=== PATIENT | male | born 1960 | race Caucasian/White ===

== ENCOUNTER 2019-09-26 00:56 | Outpatient (CLI) | payer BC, SELFPAY ==
[2019-09-26 19:19] LABS: SARS-CoV-2 RNA PCR Negative
== END 2019-09-26 00:57 | disposition home or self-care (01) ==
LOC: ANHCOVIDDT 00:57
PROVIDERS: PCP Family Medicine; Visit Provider Internal Medicine Gastroenterology
DX: Z01.812 Encounter for preprocedural laboratory examination (principal); Z11.59 Encounter for screening for other viral diseases
CPT/HCPCS: 87635; C9803; U0003

== ENCOUNTER 2019-09-28 02:17 | Day surgery (SDC) | payer BC, SELFPAY ==
[2019-09-18 12:43] VITALS: BMI 28.5
[2019-09-28 06:19] VITALS: BP 121/74; PULSE 71; RESP 18; TEMP 36.4; O2SAT 98; BMI 26.9
[2019-09-28] MEDS: LACTATED RINGERS 1,000 ML 150 ML IV CONT ×2 (06:27→07:23)
--- NOTE | 2019-09-28 06:50 | WPDANESEPPF ---
Anes - Initial Pre Proc Eval Procedure: Operation Date: 09/28/19 07:30 Proposed Procedures p Colonoscopy - Home Childress MD Date/Time: 09/28/19 06:50 Surgeon: Home Childress MD Pre Op Diagnosis: ulcerative colitis Patient Data Age: 59 Gender: M Height: 1.73 m Weight: 80.3 kg Last Vital Signs Temp 36.4 C 09/28/19 06:19 Pulse 71 09/28/19 06:19 Resp 18 09/28/19 06:19 BP 121/74 09/28/19 06:19 Pulse Ox 98 09/28/19 06:19 Allergies Allergy/AdvReac Type Severity Reaction Status Date / Time lisinopril Allergy Unknown cough Verified 09/28/19 06:15 midazolam Allergy Unknown Other Verified 09/28/19 06:15 Sulfa (Sulfonamide Allergy Unknown Skin Verified 09/28/19 06:15 Antibiotics) Reaction Home Medications Medication Instructions Recorded Confirmed Type emollient combination no.43 See Rx Instructions .ROUTE .COMPLEX 09/18/19 09/18/19 History [Promiseb] folic acid 1 mg PO DAILY 09/18/19 09/18/19 History hydrochlorothiazide 25 mg PO DAILY 09/18/19 09/18/19 History irbesartan 300 mg PO DAILY 09/18/19 09/18/19 History mesalamine 0.375 g PO DAILY 09/18/19 09/18/19 History methotrexate sodium 2.5 mg PO WEEKLY 09/18/19 09/18/19 History metoprolol succinate 50 mg PO DAILY 09/18/19 09/18/19 History Patient hx anesthesia problems: none Family hx anesthesia problems: none PMFSH Past Medical History Medical History (Updated 09/28/19 @ 06:51 by Raul Almaraz MD) Back pain HTN (hypertension) Hypercholesterolemia Irregular heartbeat HX SVT Overweight (BMI 25.0-29.9) Family History Family History (Updated 06/03/17 @ 11:09 by DOCTOR UNKNOWN) Mother Hypertension Family history of cardiovascular disease, Onset Age: 73 Family history of rheumatic fever, Onset Age: 73 Father Patient's father is Grandparent Family history of cardiovascular disease Acute myocardial infarction Sibling Family history of cardiovascular disease Social History Social History Smoking status: Never smoker Alcohol intake: current Anes - Eval Final PreProcedure Day of Procedure 07/31/20 06:50 Patient weight: overweight Heart: regular rate and rhythm Lungs: clear to auscultation and normal air movement Airway: Mallampati scale class II Neurological: alert and oriented Last oral intake: >/= 8 hours ASA classification: II Emergent: no Anesthetic plan: proceed Anesthesia type and monitoring: general GIVS Informed Consent: The patient's anesthetic plan and its attendant risks and benefits were discussed with the patient/family/POA. Questions were solicited and answers provided to the satisfaction of the patient/family/POA.
--- NOTE | 2019-09-28 07:33 | WPDGICN ---
Assessment and Plan Assessment and plan (1) Ulcerative colitis: Code(s): K51.90 - Ulcerative colitis, unspecified, without complications Status: Acute Assessment and Plan: Patient with a known history of ulcerative colitis patient is in clinical remission. Plan is to continue Apriso and methotrexate. Surveillance colonoscopy is recommended now on a perhaps 3 year intervals in the future. GI Consult Note Consult date/time: 09/28/19 07:33 HPI: Timothy Hays is a 59 year old male seen in evaluation at the request of Dr Gregoria Mims. patient with a known history of ulcerative colitis presents for screening exam. He has a long history of ulcerative colitis. Currently doing well states his bowel habits are normal. He denies abdominal pain. He denies any bleeding. His weight has remained stable. Current medications include a prior eyes 00.375 mg 6 tablets p.o. daily. Methotrexate 2.5 mg a week. Family history is noncontributory. Patient has a past medical history of a Schatzki's ring dilated currently swallowing without difficulties. Review of Systems Review of Systems: All systems reviewed & are unremarkable except as noted in HPI and below PMFSH Past Medical History Medical History (Updated 09/28/19 @ 07:49 by Home Childress MD) Back pain HTN (hypertension) Hypercholesterolemia Irregular heartbeat HX SVT Overweight (BMI 25.0-29.9) Family History Family History (Updated 06/03/17 @ 11:09 by DOCTOR UNKNOWN) Mother Hypertension Family history of cardiovascular disease, Onset Age: 73 Family history of rheumatic fever, Onset Age: 73 Father Patient's father is Grandparent Family history of cardiovascular disease Acute myocardial infarction Sibling Family history of cardiovascular disease Social History Social History Smoking status: Never smoker Alcohol intake: current Meds Home Medications and Allergies Home Medications Medication Instructions Recorded Confirmed Type emollient combination no.43 See Rx Instructions .ROUTE .COMPLEX 09/18/19 09/18/19 History [Promiseb] folic acid 1 mg PO DAILY 09/18/19 09/18/19 History hydrochlorothiazide 25 mg PO DAILY 09/18/19 09/18/19 History irbesartan 300 mg PO DAILY 09/18/19 09/18/19 History mesalamine 0.375 g PO DAILY 09/18/19 09/18/19 History methotrexate sodium 2.5 mg PO WEEKLY 09/18/19 09/18/19 History metoprolol succinate 50 mg PO DAILY 09/18/19 09/18/19 History Allergies Allergy/AdvReac Type Severity Reaction Status Date / Time lisinopril Allergy Unknown cough Verified 09/28/19 06:15 midazolam Allergy Unknown Other Verified 09/28/19 06:15 Sulfa (Sulfonamide Allergy Unknown Skin Verified 09/28/19 06:15 Antibiotics) Reaction Vital Signs Vital Signs - 24 hr 09/28/19 06:19 Temperature 97.6 F Pulse Rate 71 Respiratory Rate 18 Blood Pressure 121/74 Pulse Oximetry 98 Exam Narrative: Exam Narrative: Physical exam reveals patient to be alert. Vital signs stable. HEENT exam unremarkable. Lungs are clear to auscultation and percussion. Heart is without murmur or extra sounds. Abdominal exam bowel sounds are present soft nontender with no organomegaly. Digital external rectal exam is normal.
[2019-09-28 07:49] VITALS: BP 105/65; PULSE 70; RESP 19; O2SAT 97
[2019-09-28 07:59] VITALS: BP 117/79; PULSE 66; RESP 23; O2SAT 97
[2019-09-28 08:09] VITALS: BP 122/84; PULSE 70; RESP 14; O2SAT 98
== END 2019-09-28 08:18 | disposition home or self-care (01) ==
PROVIDERS: PCP Family Medicine; Visit Provider Internal Medicine Gastroenterology
PROC: 0DJD8ZZ Inspection of Lower Intestinal Tract, Via Natural or Artificial Opening Endoscopic (ICD-10-PCS; CPT 45378; principal; 2019-09-28 07:30)
DX: K51.50 Left sided colitis without complications (principal); I10 Essential (primary) hypertension; E78.00 Pure hypercholesterolemia, unspecified
CPT/HCPCS: 45380; 88305; J2704; J7120

== ENCOUNTER → 2020-10-29 12:19 | Outpatient (CLI) | payer BC, SELFPAY ==
--- NOTE | ~2020-10-29 | XR_ITS ---
EXAMINATION: XR thoracic spine 3V EXAM DATE: 10/29/2020 13:13 INDICATION: M54.9 - Dorsalgia, unspecified . TECHNIQUE: Frontal and lateral projections of the thoracic spine as well as lateral swimmers projecti on of the upper thoracic spine for interpretation. There is no prior study for comparison. FINDINGS: Mild mid and lower thoracic disc disease. There are no bony erosions identified. The verte bral bodies are aligned in the AP dimension. There are no acute fractures identified. behavioral geneticist ing device. Paraspinal soft tissue is unremarkable. IMPRESSION: Mild mid and lower thoracic disc disease. Reviewed, dictated and finalized at location [facility].
--- NOTE | ~2020-10-29 | XR_ITS ---
EXAMINATION: XR_CERV2-3V_CR EXAM DATE: 10/29/2020 13:13 INDICATION: Neck pain. TECHNIQUE: Cervical spine frontal and lateral projections. Open-mouth odontoid projection. There is no prior study for comparison. FINDINGS: There is no evidence of acute cervical fracture. The odontoid process is intact. Pre-dens space is normal. Prevertebral soft tissue is normal. There are no soft tissue abnormalities identi fied. There is moderate disc disease at C3-4, 5-6 and 6-7. The vertebral bodies are aligned in the A P dimension. Overall moderate cervical facet and uncovertebral joint arthropathy. Mild cervical levos coliosis. IMPRESSION: 1. Moderate cervical spondylosis. Reviewed, dictated and finalized at location [facility].
== END ==
PROVIDERS: PCP Family Medicine; Visit Provider Family Medicine
DX: M47.813 Spondylosis without myelopathy or radiculopathy, cervicothoracic region (principal)
CPT/HCPCS: 72040; 72072

== ENCOUNTER 2021-03-03 01:22 | Day surgery (SDC) | payer BC, SELFPAY ==
[2021-02-11 15:42] VITALS: BMI 26.6
[2021-03-03 06:18] VITALS: BP 109/67; PULSE 91; RESP 18; TEMP 36.1; O2SAT 98; BMI 25.0
[2021-03-03] MEDS: LACTATED RINGERS 1,000 ML 150 ML IV CONT (06:28)
--- NOTE | 2021-03-03 07:28 | WPDGICN ---
Assessment and Plan Assessment and plan (1) Ulcerative colitis: Qualifiers: Ulcerative colitis location: unspecified ulcerative colitis location Digestive disease complication type: without complication Qualified Code(s): K51.90 - Ulcerative colitis, unspecified, without complications Code(s): K51.90 - Ulcerative colitis, unspecified, without complications Status: Acute Assessment and Plan: Patient with longstanding diagnosis of ulcerative colitis. Now appears to have some activity with this as he has occasional blood in his stools in persistently loose stools. Currently maintained on Lialda. Plan is for colonoscopy both for surveillance and to assess status of his ulcerative colitis. Further recommendations will be given after endoscopy. GI Consult Note Consult date/time: 03/03/21 07:28 HPI: Timothy Hays is a 60 year old male Presents for screening colonoscopy. Patient has a longstanding history of ulcerative colitis. Since middle of summary is had persistently loose stools. He has had since 3 or 4 episodes with blood identified in his stools. He does maintain good control of bowel movements. He denies abdominal pain although with bowel movements will get cramping. He denies any fever. Medications currently include Lialda 4.8g p.o. daily. He was on a brief prednisone trial that is now tapered off. He was empirically given a trial of Flagyl with no change in bowel habits. Stool cultures have consistent Soco been negative. He presents today for screening colonoscopy. Last colonoscopy was 2-3 years ago. Review of Systems Review of Systems: All systems reviewed & are unremarkable except as noted in HPI and below PMFSH Past Medical History Medical History Back pain Esophageal dysphagia HTN (hypertension) Hypercholesterolemia Induration penis plastica Irregular heartbeat HX SVT Male erectile disorder Migraine 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 equivalents) Overweight (BMI 25.0-29.9) Peyronie's disease Right sacral radiculopathy Seborrheic dermatitis Spinal stenosis, cervical region Supraventricular tachycardia Syncope and collapse Surgical History Surgical History Hx of prior ablation treatment 2017 svt/ atrial tach Family History Family History Mother Hypertension Family history of cardiovascular disease, Onset Age: 73 Family history of rheumatic fever, Onset Age: 73 Father Patient's father is Grandparent Family history of cardiovascular disease Acute myocardial infarction Sibling Family history of cardiovascular disease Social History Social History Smoking status: Never smoker Second hand tobacco smoke exposure: No Alcohol intake: current Drinks per week: 6 Substance use: never Substance use type: does not use Living arrangements: with family Gender identity (if verbalized by the patient): Male Spiritual care concerns: No Meds Home Medications and Allergies Home Medications Medication Instructions Recorded Confirmed Type emollient combination no.43 See Rx Instructions .ROUTE .COMPLEX 09/18/19 02/11/21 History [Promiseb] irbesartan 300 mg PO DAILY 09/18/19 02/11/21 History multivitamin,tx-minerals 1 tablet PO DAILY 03/26/20 02/11/21 History omega-3 fatty acids 1,000 mg 1,000 mg PO DAILY 03/26/20 02/11/21 History capsule cyclobenzaprine 10 mg tablet 10 mg PO TID PRN #30 tablet 06/19/20 02/11/21 Rx mesalamine rectal susp enema with 4 g RECTAL QHS #45 ea 08/28/20 02/11/21 Rx cleansing wipes 4 gram/60 mL kit metoprolol succinate 50 mg 100 mg PO DAILY tablet 10/29/20 02/11/21 History tablet,extended release 24 hr metronidazole 375 mg capsule 375 mg PO Q
--- NOTE | 2021-03-03 07:30 | WPDANESEPPF ---
Anes - Initial Pre Proc Eval Procedure: Operation Date: 03/03/21 07:30 Proposed Procedures p Colonoscopy - Home Childress MD Date/Time: 03/03/21 07:30 Surgeon: Home Childress MD Pre Op Diagnosis: ulcerative colitis Patient Data Age: 60 Gender: M Height: 1.73 m Weight: 74.8 kg Last Vital Signs Temp 97 F L 03/03/21 06:18 Pulse 91 03/03/21 06:18 Resp 18 03/03/21 06:18 BP 109/67 03/03/21 06:18 Pulse Ox 98 03/03/21 06:18 Allergies Allergy/AdvReac Type Severity Reaction Status Date / Time Sulfa (Sulfonamide Allergy Unknown Skin Verified 02/11/21 15:39 Antibiotics) Reaction lisinopril AdvReac Unknown cough Verified 02/11/21 15:39 midazolam AdvReac Unknown Agitated Verified 02/11/21 15:39 Home Medications Medication Instructions Recorded Confirmed Type emollient combination no.43 See Rx Instructions .ROUTE .COMPLEX 09/18/19 02/11/21 History [Promiseb] irbesartan 300 mg PO DAILY 09/18/19 02/11/21 History multivitamin,tx-minerals 1 tablet PO DAILY 03/26/20 02/11/21 History omega-3 fatty acids 1,000 mg 1,000 mg PO DAILY 03/26/20 02/11/21 History capsule cyclobenzaprine 10 mg tablet 10 mg PO TID PRN #30 tablet 06/19/20 02/11/21 Rx mesalamine rectal susp enema with 4 g RECTAL QHS #45 ea 08/28/20 02/11/21 Rx cleansing wipes 4 gram/60 mL kit metoprolol succinate 50 mg 100 mg PO DAILY tablet 10/29/20 02/11/21 History tablet,extended release 24 hr metronidazole 375 mg capsule 375 mg PO Q12H #14 cap 12/03/20 02/11/21 Rx hydrochlorothiazide 25 mg tablet See Rx Instructions .ROUTE 01/20/21 02/11/21 Rx .COMPLEX #90 tablet mesalamine 1.2 gram tablet,delayed See Rx Instructions .ROUTE 01/20/21 02/11/21 Rx release .COMPLEX #360 tablet folic acid 1 mg PO DAILY 02/11/21 02/11/21 History prednisone 20 mg PO PRN PRN 02/11/21 02/11/21 History Patient hx anesthesia problems: none Family hx anesthesia problems: none Results Review: All pre-operative results and documents have been reviewed as part of the pre-operative evaluation. [facility] Past Medical History Medical History Back pain Esophageal dysphagia HTN (hypertension) Hypercholesterolemia Induration penis plastica Irregular heartbeat HX SVT Male erectile disorder Migraine 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 equivalents) Overweight (BMI 25.0-29.9) Peyronie's disease Right sacral radiculopathy Seborrheic dermatitis Spinal stenosis, cervical region Supraventricular tachycardia Syncope and collapse Surgical History Surgical History Hx of prior ablation treatment 2017 svt/ atrial tach Family History Family History Mother Hypertension Family history of cardiovascular disease, Onset Age: 73 Family history of rheumatic fever, Onset Age: 73 Father Patient's father is Grandparent Family history of cardiovascular disease Acute myocardial infarction Sibling Family history of cardiovascular disease Social History Social History Smoking status: Never smoker Second hand tobacco smoke exposure: No Alcohol intake: current Drinks per week: 6 Substance use: never Substance use type: does not use Living arrangements: with family Gender identity (if verbalized by the patient): Male Spiritual care concerns: No Anes - Eval Final PreProcedure Day of Procedure 03/03/21 07:30 Patient weight: overweight Heart: regular rate and rhythm Lungs: clear to auscultation Airway: Mallampati scale class II Neurological: alert and oriented Last oral intake: >/= 8 hours ASA classification: III Emergent: no Anesthetic plan: proceed Anesthesia type and monitoring: general GIVS and standard monitoring Results Review: All pre-operative results and docume
[2021-03-03 07:46] VITALS: BP 89/63; PULSE 80; RESP 22; O2SAT 94
[2021-03-03 07:56] VITALS: BP 111/77; PULSE 78; RESP 17; O2SAT 97
[2021-03-03 08:06] VITALS: BP 117/86; PULSE 72; RESP 20; O2SAT 98
== END 2021-03-03 08:12 | disposition home or self-care (01) ==
PROVIDERS: PCP Family Medicine; Visit Provider Internal Medicine Gastroenterology
PROC: 0DJD8ZZ Inspection of Lower Intestinal Tract, Via Natural or Artificial Opening Endoscopic (ICD-10-PCS; CPT 45378; principal; 2021-03-03 07:30)
DX: K51.00 Ulcerative (chronic) pancolitis without complications (principal); K63.5 Polyp of colon; K52.89 Other specified noninfective gastroenteritis and colitis; R13.10 Dysphagia, unspecified; I10 Essential (primary) hypertension; E78.00 Pure hypercholesterolemia, unspecified; I47.1 Supraventricular tachycardia; M54.18 Radiculopathy, sacral and sacrococcygeal region; N48.6 Induration penis plastica; M48.00 Spinal stenosis, site unspecified
CPT/HCPCS: 45380; 88305; J2704; J7120

== ENCOUNTER 2021-06-02 05:13 | Emergency (ER) | payer BC, SELFPAY ==
[2021-06-02 05:14] VITALS: BP 117/67; PULSE 80; RESP 16; TEMP 36.3; O2SAT 97
--- NOTE | 2021-06-02 05:43 | ED.LOWEXIN ---
HPI - Extremity Injury (Lower) General Chief Complaint: Extremity Injury, Lower Stated Complaint: left knee pain Time Seen by Provider: 06/02/21 05:28 Source: patient History of Present Illness HPI Narrative: Patient presents with left knee irritation. Patient's gets Humira injections for his ulcerative colitis usually gets them in his abdomen and may cause local irritation and edema. Couple days ago he got another injection in his thigh he had local erythema and edema and now developed some right knee pain primarily on the medial aspect. Reports is achy constant, worse with bending the knee, radiates up proximally on the medial aspect of the thigh. Patient is unsure if this is a normal reaction versus something more seriously going to come ER for evaluation. Denies prior injury to the area. Patient denies prior history of blood clots or recent hospitalizations, recent surgeries Related Data Home Medications Medication Instructions Recorded Confirmed emollient combination no.43 See Rx Instructions .ROUTE .COMPLEX 09/18/19 02/11/21 [Promiseb] irbesartan 300 mg PO DAILY 09/18/19 02/11/21 multivitamin,tx-minerals 1 tablet PO DAILY 03/26/20 02/11/21 omega-3 fatty acids 1,000 mg 1,000 mg PO DAILY 03/26/20 02/11/21 capsule metoprolol succinate 50 mg 100 mg PO DAILY tablet 10/29/20 02/11/21 tablet,extended release 24 hr prednisone 20 mg PO PRN PRN 02/11/21 02/11/21 Allergies Allergy/AdvReac Type Severity Reaction Status Date / Time Sulfa (Sulfonamide Allergy Unknown Skin Verified 06/02/21 05:17 Antibiotics) Reaction lisinopril AdvReac Unknown cough Verified 06/02/21 05:17 midazolam AdvReac Unknown Agitated Verified 06/02/21 05:17 Review of Systems Review of Systems: CONSTITUTIONAL: Denies fever, chills, or sweats. EYES: Denies visual changes, redness, or discharge. ENT: Denies rhinorrhea, congestion, sore throat, or otalgia. CARDIOVASCULAR: Denies chest pain, palpitations, or edema. RESPIRATORY: Denies cough or dyspnea. GASTROINTESTINAL: Denies abdominal pain, nausea, vomiting, or diarrhea. GENITOURINARY: Denies dysuria or hematuria. SKIN: Denies rash or itching. MUSCULOSKELETAL: Denies back pain, joint pain, or myalgia. NEUROLOGIC: Denies headache, numbness, dizziness, or weakness. PSYCHIATRIC: Denies anxiety or depression. All systems reviewed & are unremarkable except as noted in HPI and below PMFSH Past Medical History Medical History Back pain Esophageal dysphagia HTN (hypertension) Hypercholesterolemia Induration penis plastica Irregular heartbeat HX SVT Male erectile disorder Migraine 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 equivalents) Overweight (BMI 25.0-29.9) Peyronie's disease Right sacral radiculopathy Seborrheic dermatitis Spinal stenosis, cervical region Supraventricular tachycardia Syncope and collapse Surgical History Surgical History Hx of prior ablation treatment 2017 svt/ atrial tach Family History Family History Mother Hypertension Family history of cardiovascular disease, Onset Age: 73 Family history of rheumatic fever, Onset Age: 73 Father Patient's father is Grandparent Family history of cardiovascular disease Acute myocardial infarction Sibling Family history of cardiovascular disease Social History Social History Smoking status: Never smoker Second hand tobacco smoke exposure: No Alcohol intake: current Drinks per week: 6 Substance use: never Substance use type: does not use Gender identity (if verbalized by the patient): Male Spiritual care concerns: No Exam Narrative: GENERAL: Well-appearing, well-nourished, and in no acute distress. HEAD: Normocephalic, atraumatic. EYES: PERRLA and EOMI. ENT:
== END 2021-06-02 06:03 | disposition home or self-care (01) ==
LOC: ANHED 05:56
PROVIDERS: Emergency Provider Emergency Medicine; PCP Family Medicine
DX: M25.562 Pain in left knee (principal); I10 Essential (primary) hypertension; E78.00 Pure hypercholesterolemia, unspecified; Z79.899 Other long term (current) drug therapy; Z86.69 Personal history of other diseases of the nervous system and sense organs; Z98.890 Other specified postprocedural states; Z88.2 Allergy status to sulfonamides; Z88.8 Allergy status to other drugs, medicaments and biological substances
CPT/HCPCS: 99281

== ENCOUNTER 2021-06-27 23:36 | Emergency (ER) | payer BC, SELFPAY ==
--- NOTE | ~2021-06-27 | CT_ITS ---
EXAMINATION: CT brain wo con DATE: 06/28/2021 01:23 INDICATION: Left forehead hematoma. Dizziness, syncope. TECHNIQUE: Computed tomographic angiography (CTA) of the head was performed without and with 100 mL O mnipaque-350 intravenous contrast. Exam dose: 605.33 mGy-cm total exam DLP. Volume-rendered and ma ximum intensity projection 3D reconstructions of the intracranial arteries were created by the techno logist on a separate workstation. COMPARISON: None. FINDINGS: Bilateral carotid siphon internal carotid artery calcifications. Nonspecific mild diminishe d attenuation cerebral white matter, likely due to chronic small vessel ischemic changes. No intracranial mass lesion or hemorrhage or cerebrovascular accident. No midline shift or mass effec t. No subdural or epidural hematoma. No fracture or bone destruction of the cranial vault. Mastoid air cells and included paranasal sinuses are normally developed and aerated. IMPRESSION: Cerebral atherosclerosis and chronic small vessel ischemic changes of cerebral white mat ter No acute intracranial abnormality Reviewed, dictated and finalized at [facility]. Reviewed, dictated and finalized at location [facility]. IMPRESSION: Cerebral atherosclerosis and chronic small vessel ischemic changes of cerebral white matter No acute intracranial abnormality
--- NOTE | ~2021-06-27 | CT_ITS ---
EXAMINATION: CT abdomen pelvis w con DATE: 06/28/2021 03:46 INDICATION: Elevated white blood cell count TECHNIQUE: Computed tomography (CT) of the abdomen and pelvis was performed with 100 CC Omnipaque 350 intravenous contrast. Automated exposure control and iterative reconstruction technique were employe d. Exam dose: 511.97 mGy-cm total exam DLP. COMPARISON: None. FINDINGS: There is posterior basilar right lower lobe atelectasis at left lower lobe atelectasis. Min imal discoid atelectasis or scarring at the base of the lingula. Normal heart size. No pericardial or pleural effusion. The liver, gallbladder, bile ducts, pancreas, pancreatic duct and spleen are unremarkable. Normal morphology of the adrenal glands. Normal caliber of the abdominal aorta. No intraperitoneal or retroperitoneal or pelvic mass lesion or adenopathy or ascites. No renal mass lesion or urinary tract calculus or hydroureteronephrosis. There is prostate enlargemen t. The urinary bladder is unremarkable. There is mild thickening of the wall of the colon with some fluid levels;. There are areas of pericol ic mild fat stranding. The findings suggest colitis. No small bowel dilatation or wall thickening. No evidence of appendicitis. Degenerative changes of the lower thoracic spine and lumbar spine including severe degenerative disc disease at L4-5 and L5-S1, mild retrolisthesis at L5-S1. IMPRESSION: Diffuse colon wall thickening, colon and air-filled levels, suggesting colitis. Consider inflammatory or infectious colitis Reviewed, dictated and finalized at [facility]. Reviewed, dictated and finalized at location [facility]. IMPRESSION: Diffuse colon wall thickening, colon and air-filled levels, sugges ting colitis. Consider inflammatory or infectious colitis
[2021-06-27 23:40] VITALS: BP 112/69; PULSE 85; RESP 16; TEMP 36.2; O2SAT 98
--- NOTE | 2021-06-28 00:07 | ECG_ITS ---
Measurements Intervals [place] Rate: 79 P: 4 DE: 149 QRS: -48 QRSD: 105 T: 49 QT: 384 QTc: 441 Interpretive Statements SINUS RHYTHM LEFT AXIS DEVIATION BORDERLINE ECG Electronically Signed On 06-28-2021 6:42:05 CDT by Guzman Sanders D.O.
[2021-06-28 00:37] LABS: Basophils Absolute Auto 0.2 K/mm3 (0.0-0.1); Basophils Percent Auto 0.6 % (0.2-1.2); Eosinophils Absolute Auto 0.2 K/mm3 (0-0.3); Eosinophils Percent Auto 0.8 % (0-4.4); Hematocrit 43.5 % (42.0-52.0); Hemoglobin 14.4 g/dL (14.0-18.0); Immature Granulocyte Absolute 0.22 K/mm3 (0.00-0.031); Immature Granulocyte Percent A 0.8 % (0-0.5); Lymphocytes Absolute Auto 4.59 K/mm3 (0.9-3.2); Lymphocytes Percent Auto 17.5 % (18.3-44.2); Mean Corpuscular HGB Conc 33.1 g/dl (32-36); Mean Corpuscular Hemoglobin 30.1 pg (26-34); Monocytes Absolute Auto 1.9 K/mm3 (0.1-0.6); Neutrophils Absolute Auto 19.2 K/mm3 (1.3-6.7); Neutrophils Percent Auto 73.3 % (45.5-73.1); Platelet Count Result 321 k/mm3 (150-375); Red Blood Count 4.78 M/mm3 (4.6-6.20); White Blood Count 26.3 K/mm3 (4.5-10.0)
[2021-06-28 00:46] LABS: Alanine Aminotransferase 18 U/L (4-50); Albumin Level 3.6 g/dL (3.5-5.1); Alkaline Phosphatase 88 U/L (38-126); Anion Gap 5 mmol/L (8-16); Aspartate Amino Transferase 28 U/L (17-59); Bilirubin,Total 0.3 mg/dL (0.2-1.3); Blood Urea Nitrogen 12 mg/dL (9-20); Calcium 8.3 mg/dL (8.4-10.2); Carbon Dioxide 30 mmol/L (22-30); Chloride 102 mmol/L (98-107); Estimated CRCL calculation 67 ml/min; Estimated Glomerular Filt Rate > 60; Glucose 138 mg/dL (65-110); Potassium 3.5 mmol/L (3.4-5.0); Sodium 137 mmol/L (137-145)
--- NOTE | 2021-06-28 01:10 | ED.DIZZY ---
HPI - Dizziness General Chief Complaint: Syncope Stated Complaint: fall Time Seen by Provider: 06/28/21 00:22 Source: patient History of Present Illness HPI Narrative: Patient presents with syncope. Patient was using the restroom and developed lightheadedness and tunnel vision and then collapsed. Loud noise was heard by his who went to evaluate. They noted a fair amount of blood in the bathroom she helped the patient to his feet a lot and continue using the restroom and then transported to the ER for evaluation. Patient denies any chest pain or shortness of breath prior to the fall. Patient reports a history of micturition syncope. Reports he still feels a little bit weak and nauseous. Reports he felt well earlier today he denies any recent fever cough, congestion. Does report he gets frequent allergic reactions due to his Humira injections and had an injection today he treated himself with Benadryl to assist with sleeping tonight and then use the restroom afterward Related Data Home Medications Medication Instructions Recorded Confirmed emollient combination no.43 See Rx Instructions .ROUTE .COMPLEX 09/18/19 02/11/21 [Promiseb] irbesartan 300 mg PO DAILY 09/18/19 02/11/21 multivitamin,tx-minerals 1 tablet PO DAILY 03/26/20 02/11/21 omega-3 fatty acids 1,000 mg 1,000 mg PO DAILY 03/26/20 02/11/21 capsule metoprolol succinate 50 mg 100 mg PO DAILY tablet 10/29/20 02/11/21 tablet,extended release 24 hr prednisone 20 mg PO PRN PRN 02/11/21 02/11/21 adalimumab 40 mg/0.8 mL 40 mg SUBCUT Q2H ea 06/17/21 subcutaneous pen kit Allergies Allergy/AdvReac Type Severity Reaction Status Date / Time Sulfa (Sulfonamide Allergy Unknown Skin Verified 06/28/21 00:13 Antibiotics) Reaction lisinopril AdvReac Unknown cough Verified 06/27/21 23:44 midazolam AdvReac Unknown Agitated Verified 06/28/21 00:13 Review of Systems Review of Systems: CONSTITUTIONAL: Denies fever, chills, or sweats. EYES: Denies visual changes, redness, or discharge. ENT: Denies rhinorrhea, congestion, sore throat, or otalgia. CARDIOVASCULAR: Denies chest pain, palpitations, or edema. RESPIRATORY: Denies cough or dyspnea. GASTROINTESTINAL: Denies abdominal pain, nausea, vomiting, or diarrhea. GENITOURINARY: Denies dysuria or hematuria. SKIN: Denies rash or itching. MUSCULOSKELETAL: Denies back pain, joint pain, or myalgia. NEUROLOGIC: Denies headache, numbness, dizziness, or weakness. PSYCHIATRIC: Denies anxiety or depression. All systems reviewed & are unremarkable except as noted in HPI and below PMFSH Past Medical History Medical History Back pain Esophageal dysphagia HTN (hypertension) Hypercholesterolemia Induration penis plastica Irregular heartbeat HX SVT Male erectile disorder Migraine 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 equivalents) Overweight (BMI 25.0-29.9) Peyronie's disease Right sacral radiculopathy Seborrheic dermatitis Spinal stenosis, cervical region Supraventricular tachycardia Syncope and collapse Surgical History Surgical History Hx of prior ablation treatment 2017 svt/ atrial tach Family History Family History Mother Hypertension Family history of cardiovascular disease, Onset Age: 73 Family history of rheumatic fever, Onset Age: 73 Father Patient's father is Grandparent Family history of cardiovascular disease Acute myocardial infarction Sibling Family history of cardiovascular disease Social History Social History Smoking status: Never smoker Second hand tobacco smoke exposure: No Alcohol intake: current Drinks per week: 6 Substance use: never Substance use type: does not use Gender identity (if verbalized by the patient): Male Spiritual
[2021-06-28] MEDS: SODIUM CHLORIDE 0.9% IV 1,000 ML 999 ML IV CONT (01:11)
[2021-06-28 01:12] VITALS: BP 109/69; PULSE 84; RESP 20; O2SAT 96
--- NOTE | 2021-06-28 01:13 | PC.NURSE ---
Pt to CT at this time
[2021-06-28 02:05] VITALS: BP 106/67; PULSE 85; RESP 16; O2SAT 97
[2021-06-28 03:52] VITALS: BP 109/65; PULSE 80; RESP 17; O2SAT 95
--- NOTE | 2021-06-28 04:35 | PC.NURSE ---
Pt reports improved dizziness and nausea. Pt resting on stretcher, updated on POC
[2021-06-28 05:18] VITALS: BP 102/67; PULSE 78; RESP 19; O2SAT 92
[2021-06-28 06:08] VITALS: BP 107/70; PULSE 76; RESP 14; O2SAT 96
== END 2021-06-28 06:18 | disposition home or self-care (01) ==
PROVIDERS: Emergency Provider Emergency Medicine; PCP Family Medicine
DX: R55 Syncope and collapse (principal); S31.21XA Laceration without foreign body of penis, initial encounter; S00.83XA Contusion of other part of head, initial encounter; I10 Essential (primary) hypertension; E78.00 Pure hypercholesterolemia, unspecified; N48.6 Induration penis plastica; W18.39XA Other fall on same level, initial encounter
CPT/HCPCS: 12001; 36415; 70450; 74177; 80053; 85025; 93005; 96360; 99284; J7030; Q9967

== ENCOUNTER 2021-12-17 15:31 | Outpatient (CLI) | payer BC, SELFPAY ==
[2021-12-17 20:03] LABS: Basophils Absolute Auto 0.1 K/mm3 (0.0-0.1); Eosinophils Percent Auto 0.2 % (0-4.4); Hematocrit 42.7 % (42.0-52.0); Hemoglobin 14.6 g/dL (14.0-18.0); Immature Granulocyte Absolute 0.13 K/mm3 (0.00-0.031); Lymphocytes Absolute Auto 5.92 K/mm3 (0.9-3.2); Lymphocytes Percent Auto 44.7 % (18.3-44.2); Mean Corpuscular HGB Conc 34.2 g/dl (32-36); Mean Corpuscular Volume 87.9 fl (80-100); Mean Platelet Volume 9.8 fl (7.4-10.4); Monocytes Absolute Auto 0.9 K/mm3 (0.1-0.6); Monocytes Percent Auto 6.6 % (2.6-8.5); Neutrophils Absolute Auto 6.2 K/mm3 (1.3-6.7); Neutrophils Percent Auto 46.5 % (45.5-73.1); Platelet Count Result 356 k/mm3 (150-375); Red Blood Count 4.86 M/mm3 (4.6-6.20); Red Cell Distribution Width 13.1 % (11.5-14.5); White Blood Count 13.3 K/mm3 (4.5-10.0)
[2021-12-17 20:34] LABS: Hemoglobin A1C 6.4 % (<5.7)
[2021-12-17 20:47] LABS: Alanine Aminotransferase 138 U/L (6-50); Albumin Level 4.2 g/dL (3.5-5.1); Alkaline Phosphatase 140 U/L (38-126); Anion Gap 12 mmol/L (8-16); Aspartate Amino Transferase 60 U/L (17-59); Bilirubin,Total 0.3 mg/dL (0.2-1.3); Blood Urea Nitrogen 15 mg/dL (9-20); Calcium 9.2 mg/dL (8.4-10.2); Carbon Dioxide 23 mmol/L (22-30); Chloride 104 mmol/L (98-107); Cholesterol 148 mg/dL (0-200); Estimated Glomerular Filt Rate > 60; Glucose 106 mg/dL (65-110); HDL Direct 26 mg/dL; Sodium 139 mmol/L (137-145); Triglycerides 347 mg/dL (<150)
[2021-12-17 20:58] LABS: LDL Cholesterol Direct 84 mg/dL
[2021-12-17 21:16] LABS: Prostate Specific Antigen 1.3 ng/mL (< OR = 4.0)
[2021-12-17 21:19] LABS: Vitamin D 25 Hydroxy 24.8 ng/mL
== END 2021-12-17 15:32 | disposition home or self-care (01) ==
LOC: ANHGOSHLAB 15:33
PROVIDERS: PCP Family Medicine; Visit Provider Family Medicine
DX: K51.90 Ulcerative colitis, unspecified, without complications (principal); E78.2 Mixed hyperlipidemia; K21.00 Gastro-esophageal reflux disease with esophagitis, without bleeding; R73.03 Prediabetes; Z12.5 Encounter for screening for malignant neoplasm of prostate
CPT/HCPCS: 36415; 80053; 80061; 82306; 82607; 82728; 83036; 84153; 85025; G0103

== ENCOUNTER 2022-01-26 15:30 | Outpatient (RCR) | payer BC, SELFPAY ==
[2022-01-14 08:11] VITALS: BMI 26.4
[2022-01-14 09:09] VITALS: BMI 26.4
== END 2022-01-26 16:31 | disposition home or self-care (01) ==
LOC: ANHDMC 15:30
PROVIDERS: PCP Family Medicine; Visit Provider Family Medicine
DX: E11.9 Type 2 diabetes mellitus without complications (principal); Z71.3 Dietary counseling and surveillance; Z71.89 Other specified counseling
CPT/HCPCS: 97802; G0108

== ENCOUNTER → 2022-03-02 16:10 | Outpatient (CLI) | payer BC, SELFPAY ==
--- NOTE | ~2022-03-02 | XR_ITS ---
EXAM: XR hand RT min 3V DATE: 03/02/2022 16:25 HISTORY: Primary osteoarthritis, right hand . COMPARISON: None available. FINDINGS: Normal mineralization. No fracture or dislocation. No lytic or blastic lesion. Moderate john int space narrowing and subchondral sclerosis at the trapeziometacarpal joint and the second MCP join t. Additional more mild osteoarthritic changes in the interphalangeal joints of the thumb and fingers and the triscaphe joint. No erosion or periosteal change. Soft tissues within normal limits. IMPRESSION: Polyarticular osteoarthritic changes in the right hand. Reviewed, dictated and finalized at location K. WARE RELEASE MANAGER
== END ==
PROVIDERS: PCP Family Medicine; Visit Provider Plastic Surgery
DX: M19.041 Primary osteoarthritis, right hand (principal)
CPT/HCPCS: 73130

== ENCOUNTER 2022-07-02 02:35 | Day surgery (SDC) | payer BC, SELFPAY ==
[2022-06-21 14:15] VITALS: BMI 26.6
[2022-07-02 06:29] VITALS: BP 138/77; PULSE 60; RESP 20; TEMP 36.2; O2SAT 97
[2022-07-02] MEDS: LACTATED RINGERS 1,000 ML 150 ML IV CONT (06:41)
--- NOTE | 2022-07-02 07:13 | WPDANESEPPF ---
Anes - Initial Pre Proc Eval Procedure: Operation Date: 07/02/22 07:30 Proposed Procedures p Colonoscopy - Home Childress MD Date/Time: 07/02/22 07:13 Surgeon: Home Childress MD Pre Op Diagnosis: ulcerative colitis Patient Data Age: 62 Gender: M Height: 1.73 m Weight: 77.5 kg Last Vital Signs Temp 97.2 F L 07/02/22 06:29 Pulse 60 07/02/22 06:29 Resp 20 07/02/22 06:29 BP 138/77 07/02/22 06:29 Pulse Ox 97 07/02/22 06:29 Allergies Allergy/AdvReac Type Severity Reaction Status Date / Time adalimumab [From Humira] Allergy Mild Hives Verified 07/02/22 06:32 Sulfa (Sulfonamide Allergy Unknown Skin Verified 07/02/22 06:32 Antibiotics) Reaction lisinopril AdvReac Unknown cough Verified 07/02/22 06:32 midazolam AdvReac Unknown Agitated Verified 07/02/22 06:32 Home Medications Medication Instructions Recorded Confirmed Type irbesartan 300 mg tablet 300 mg PO DAILY 09/18/19 07/02/22 History multivitamin,tx-minerals 1 tablet PO DAILY 03/26/20 07/02/22 History omega-3 fatty acids 1,000 mg 1,000 mg PO DAILY 03/26/20 07/02/22 History capsule (Fish Oil Concentrate) cyclobenzaprine 10 mg tablet 10 mg PO TID PRN muscle spasm #30 06/19/20 07/02/22 Rx tabs metoprolol succinate 50 mg 100 mg PO DAILY 10/29/20 07/02/22 History tablet,extended release 24 hr prednisone 5 mg tablet 20 mg PO PRN PRN Abdominal 02/11/21 07/02/22 History Discomfort vedolizumab 300 mg intravenous 300 mg IV ONCE 12/24/21 07/02/22 History solution (Entyvio) mesalamine 1,000 mg rectal 1 g RECTAL QHS PRN urgency #30 ea 05/19/22 07/02/22 Rx suppository (Canasa) sodium,potassium,mag sulfates 17.5 See Rx Instructions PO .COMPLEX 05/24/22 07/02/22 Rx gram-3.13 gram-1.6 gram oral soln #354 mL (Suprep Bowel Prep Kit) doxycycline monohydrate 100 mg 100 mg PO BID 06/21/22 07/02/22 History tablet mesalamine 4 gram/60 mL enema 4 g RECTAL QHS PRN Cramps 06/21/22 07/02/22 History Patient hx anesthesia problems: none Family hx anesthesia problems: none Results Review: All pre-operative results and documents have been reviewed as part of the pre-operative evaluation. [facility] Past Medical History Medical History Esophageal dysphagia Induration penis plastica Male erectile disorder Micturition syncope Migraine Migraine 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 equivalents) Peyronie's disease Right sacral radiculopathy Seborrheic dermatitis Spinal stenosis, cervical region Supraventricular tachycardia Syncope and collapse Surgical History Surgical History Hx of prior ablation treatment 2017 svt/ atrial tach Family History Family History Mother Hypertension Family history of cardiovascular disease, Onset Age: 73 Family history of rheumatic fever, Onset Age: 73 Father Patient's father is Grandparent Family history of cardiovascular disease Acute myocardial infarction Sibling Family history of cardiovascular disease Social History Social History Social History: Caffeine-coffee Smoking status: Never smoker Second hand tobacco smoke exposure: No Alcohol intake: current Drinks per week: 6 Alcohol use details: alcohol on weekend Substance use: never Substance use type: does not use Lack of Transportation: No Lack of Food: Never True Current Housing: I Have Housing Concerned About Future Housing: No Difficulty Paying Gas/Electric Bills: No Difficulty Paying for Meds: No Currently Unemployed: No Education: Master's Degree or Higher Difficulty w/ Childcare or Family Care: No Living arrangements: with family Gender identity (if verbalized by the patient): Male Spiritual care concerns: No
--- NOTE | 2022-07-02 07:48 | PM.HPGS ---
History of Present Illness History of Present Illness Consent: Risks, benefits, and alternatives have been discussed and questions answered. Patient agrees to proceed with procedure. Chief complaint: ulcerative colitis Narrative: Timothy Hays is a 62 year old male Presents for follow-up colonoscopy. Patient has a history of ulcerative pancolitis. Initially intolerant to Humira. Patient more recently has been on Entyvio. He has tolerated this medication. But continues to have fecal urgency frequent stools in the morning. He continues to have blood admixed with his stools. Patient denies any abdominal pain at present. He has no fever. Weight has remained stable. He presents today for follow-up colonoscopy. Review of Systems Review of Systems: Review of systems is noncontributory. [facility] Past Medical History Medical History Esophageal dysphagia Induration penis plastica Male erectile disorder Micturition syncope Migraine Migraine 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 equivalents) Peyronie's disease Right sacral radiculopathy Seborrheic dermatitis Spinal stenosis, cervical region Supraventricular tachycardia Syncope and collapse Surgical History Surgical History Hx of prior ablation treatment 2017 svt/ atrial tach Family History Family History Mother Hypertension Family history of cardiovascular disease, Onset Age: 73 Family history of rheumatic fever, Onset Age: 73 Father Patient's father is Grandparent Family history of cardiovascular disease Acute myocardial infarction Sibling Family history of cardiovascular disease Social History Social History Social History: Caffeine-coffee Smoking status: Never smoker Second hand tobacco smoke exposure: No Alcohol intake: current Drinks per week: 6 Alcohol use details: alcohol on weekend Substance use: never Substance use type: does not use Lack of Transportation: No Lack of Food: Never True Current Housing: I Have Housing Concerned About Future Housing: No Difficulty Paying Gas/Electric Bills: No Difficulty Paying for Meds: No Currently Unemployed: No Education: Master's Degree or Higher Difficulty w/ Childcare or Family Care: No Living arrangements: with family Gender identity (if verbalized by the patient): Male Spiritual care concerns: No Meds Home Medications and Allergies Home Medications Medication Instructions Recorded Confirmed Type irbesartan 300 mg tablet 300 mg PO DAILY 09/18/19 07/02/22 History multivitamin,tx-minerals 1 tablet PO DAILY 03/26/20 07/02/22 History omega-3 fatty acids 1,000 mg 1,000 mg PO DAILY 03/26/20 07/02/22 History capsule (Fish Oil Concentrate) cyclobenzaprine 10 mg tablet 10 mg PO TID PRN muscle spasm #30 06/19/20 07/02/22 Rx tabs metoprolol succinate 50 mg 100 mg PO DAILY 10/29/20 07/02/22 History tablet,extended release 24 hr prednisone 5 mg tablet 20 mg PO PRN PRN Abdominal 02/11/21 07/02/22 History Discomfort vedolizumab 300 mg intravenous 300 mg IV ONCE 12/24/21 07/02/22 History solution (Entyvio) mesalamine 1,000 mg rectal 1 g RECTAL QHS PRN urgency #30 ea 05/19/22 07/02/22 Rx suppository (Canasa) sodium,potassium,mag sulfates 17.5 See Rx Instructions PO .COMPLEX 05/24/22 07/02/22 Rx gram-3.13 gram-1.6 gram oral soln #354 mL (Suprep Bowel Prep Kit) doxycycline monohydrate 100 mg 100 mg PO BID 06/21/22 07/02/22 History tablet mesalamine 4 gram/60 mL enema 4 g RECTAL QHS PRN Cramps 06/21/22 07/02/22 History Allergies Allergy/AdvReac Type Severity Reaction Status Date / Time adalimumab [From Humira] Allergy Mild Hives Verified 07/02/22 06:32 Sulfa (Sulfonamide
[2022-07-02 07:50] VITALS: BP 109/73; PULSE 61; RESP 18; O2SAT 95
[2022-07-02 08:00] VITALS: BP 110/74; PULSE 63; RESP 19; O2SAT 95
[2022-07-02 08:10] VITALS: BP 137/92; PULSE 61; RESP 26; O2SAT 98
== END 2022-07-02 08:29 | disposition home or self-care (01) ==
PROVIDERS: PCP Family Medicine; Visit Provider Internal Medicine Gastroenterology
PROC: 0DJD8ZZ Inspection of Lower Intestinal Tract, Via Natural or Artificial Opening Endoscopic (ICD-10-PCS; CPT 45378; principal; 2022-07-02 07:30)
DX: K51.00 Ulcerative (chronic) pancolitis without complications (principal)
CPT/HCPCS: 45380; 88305; J2704; J7120

== ENCOUNTER 2023-11-02 10:13 | Outpatient (CLI) | payer BC, SELFPAY ==
--- NOTE | ~2023-11-02 | CT_ITS ---
EXAMINATION: CTA brain DATE: 11/02/2023 10:49 INDICATION: Left-sided pulsatile tinnitus. TECHNIQUE: Computed tomographic angiography (CTA) of the head was performed without and with 100 mL O mnipaque-350 intravenous contrast. Automated exposure control and iterative reconstruction technique were employed. The dose-length product was 1312.86 mGy-cm. Maximum intensity projection 3D reconstru ctions were created. Volume-rendered 3D reconstructions of the intracranial arteries were created by the technologist on a separate workstation. COMPARISON: Head CT 06/28/2021 FINDINGS: There is no intracranial hemorrhage, acute infarction, or abnormal intracranial mass lesion . The ventricles are normal in size. There is mild mucosal thickening in the ethmoid sinuses. The mas toid air cells are normal. The orbits are normal. Vertebral artery is dominant. There is no significa nt stenosis of basilar artery or the posterior cerebral arteries. The posterior communicating arterie s are normal. There is no significant stenosis of the intracranial internal carotid arteries or anter ior or middle cerebral arteries. Anterior communicating artery is normal. There is no aneurysm. IMPRESSION: 1. Normal brain. 2. No aneurysm or significant intracranial arterial stenosis. Reviewed, dictated and finalized at location A.
[2023-11-02 10:28] LABS: Estimated Glomerular Filt Rate > 60
== END 2023-11-02 10:14 | disposition home or self-care (01) ==
LOC: MICIMG 10:13
PROVIDERS: PCP Family Medicine; Visit Provider Otolaryngology
DX: H69.92 Unspecified Eustachian tube disorder, left ear (principal); H81.02 Meniere's disease, left ear; H90.6 Mixed conductive and sensorineural hearing loss, bilateral; H93.A2 Pulsatile tinnitus, left ear
CPT/HCPCS: 70496; Q9967

== ENCOUNTER 2023-12-01 13:07 | Outpatient (CLI) | payer BC, SELFPAY | END 2023-12-01 13:08 | disposition home or self-care (01) | LOC: ANHAUDIO 13:10 | PROVIDERS: PCP Family Medicine; Visit Provider Otolaryngology | DX: H90.42 Sensorineural hearing loss, unilateral, left ear, with unrestricted hearing on the contralateral side (principal); H69.92 Unspecified Eustachian tube disorder, left ear; H81.02 Meniere's disease, left ear; H93.A2 Pulsatile tinnitus, left ear | CPT/HCPCS: 92557; 92567 ==

== ENCOUNTER 2024-03-19 07:24 | Outpatient (CLI) | payer BC, SELFPAY ==
[2024-03-19 08:26] LABS: Anion Gap 9 mmol/L (4-12); Blood Urea Nitrogen 23 mg/dL (9-20); Calcium 9.3 mg/dL (8.4-10.2); Carbon Dioxide 31 mmol/L (22-30); Chloride 100 mmol/L (98-107); Estimated Glomerular Filt Rate > 60; Glucose 115 mg/dL (65-110); Potassium 3.5 mmol/L (3.4-5.0); Sodium 140 mmol/L (137-145)
== END 2024-03-19 07:25 | disposition home or self-care (01) ==
LOC: ANHLAB 07:25
PROVIDERS: PCP Family Medicine; Visit Provider Anesthesiology
DX: Z01.818 Encounter for other preprocedural examination (principal); E11.9 Type 2 diabetes mellitus without complications
CPT/HCPCS: 36415; 80048

== ENCOUNTER 2025-01-17 01:19 | Day surgery (SDC) | payer BC, SELFPAY ==
[2025-01-01 12:36] VITALS: BMI 28.3
--- OUTSIDE RECORDS SUMMARY | 2025-01-17 02:13 | XMS_ITS | Encounter Summary ---
Author Organization [facility] Address Formerly [facility] [place] [address] Care Team Providers Care Denture Packer Name Role Phone Gregoria Mims MD Primary Care Provider [phone] Nitin Abdi MD Unavailable Wayne Bryan MD Unavailable Encounter Details Date Type Department Care Team (Late Contact Info) Description 11/29/2023 Spredfashion Message Enc [facility], [facility] [address] [place] [address] Jeanie Reyes, ANP-BC Three [facility]. 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 [address] [place], [place] [id number] documented as of this encounter Visit Diagnoses Not on filedocumented in this encounter Care Teams Denture Packer Relationship Specialty Start Date End Date Gregoria Mims MD PCP - General FAMILY PRACTICE 07/30/15 Nitin Abdi MD [facility] [address] [place], [place] [id number] [place] [employer] Press Operator CARDIOVASCULAR DISEASE 07/30/15 Wayne Bryan MD [facility] [address] [place], [place] [id number] [employer] Press Operator CARDIOVASCULAR DISEASE 08/11/16 documented as of this encounter
--- OUTSIDE RECORDS SUMMARY | 2025-01-17 02:13 | XMS_ITS | Encounter Summary ---
Author Organization [facility] Address Formerly [facility] [place] [address] Care Team Providers Care Sprinkler Fitter Name Role Phone Gregoria Mims MD Primary Care Provider [phone] Nitin Abdi MD Unavailable Wayne Bryan MD Unavailable Encounter Details Date Type Department Care Team (Late Contact Info) Description 11/20/2020 Nuhookt Message Enc [facility] [phone] Jeanie Reyes, ANP-BC [facility]. [facility] [address] [place] [address] Lab results Social History Tobacco Use Types Packs/Day Years [...] Encounters Date Type Department Care Team (Late Contact Info) Description 02/11/2025 8:30 AM SIGHT EFFECTS SPECIALIST Office Visit [facility], [address] [place] [address] Jeanie Reyes, ANP-BC [address] [place] [address] documented as of this encounter Visit Diagnoses Not on filedocumented in this encounter Care Teams Sprinkler Fitter Relationship Specialty Start Date End Date Gregoria Mims MD PCP - General FAMILY PRACTICE 07/30/15 Nitin Abdi MD [facility] [address] [place] [address] [employer] Project Planner CARDIOVASCULAR DISEASE 07/30/15 Wayne [facility] [address] [place], [place] [id number] [employer] Systems Project Planner CARDIOVASCULAR DISEASE 08/11/16 documented as of this encounter
--- OUTSIDE RECORDS SUMMARY | 2025-01-17 02:13 | XMS_ITS | Encounter Summary ---
Author Organization [facility] Address [address] [facility] [place] [address] Care Team Providers Care Online Merchant Name Role Phone Unavailable Primary Care Provider Unavailabl e Encounter Details Date Type Department Care Team (Late st Contact Info) Description 07/27/2018 Lab Requisition [facility] [address] [place] [address] Sherwin Tejada MD [address] [place] [address] Social History Tobacco Use Types Packs/Day Years Used Date Smoking Tobacco: Never Assessed Sex and Gender Information Value Date Recorded Sex Assigned at Not on file Legal Sex Male 11:22 AM CDT Gender Identity Not on file Sexual Orientation Not on file documented as of this encounter Plan of Treatment Not on file documented as of this encounter Procedures Procedure Name Priority Date/Time Associated Diagnosis Comments DERMATOPATHOLOGY Routine 07/26/2018 12:0 0 AM CDT documented in this encounter Results * DERMATOPATHOLOGY (07/26/2018 12:00 AM CDT) Case Report Dermatopathology Report Case: [id number] Authorizing Provider: Sherwin Tejada MD Collected: 07/26/2018 12:00 AM Pathologist: Juana Serrato MD Received: 07/27/2018 11:30 AM Specimen: Skin, right upper breast 9 12:30 PM CDT DERMATOPATHOLOGY LABORATORY Final Diagnosis Specimen A. SKIN, right upper breast: LICHEN PLANUS-LIKE KERATOSIS (BENIGN LICHENOID KERATOSIS), RESOLVING (L82.1) POST-INFLAMMATORY PIGMENT ALTERATION (L81.9) 9 12:30 PM CDT DERMATOPATHOLOGY LABORATORY at 1230 CDT Clinical History R/O SCC, BCC. 12:30 PM CDT DERMATOPATHOLOGY LABORATORY Gross Description Specimen A: Received is one formalin filled container labeled with the patient's name and designated right upper breast. The specimen consists of a shave biopsy measuring [id number]. Jar 0. 12:30 PM T DERMATOPATHOLOGY LABORATORY Microscopic Description Specimen A. SKIN, right upper breast: The epidermis is mildly acanthotic. There is a very focal lichenoid infiltrate with vacuolar changes of basilar keratinocytes and scattered necrotic keratinocytes. Sections show abundant melanin within melanophages around the superficial vascular plexus. 12:30 PM T DERMATOPATHOLOGY LABORATORY Disclaimer An external and internal positive and negative controls are appropriate for the histochemical, immunohistochemical and immunofluorescence stain(s) in this case (if any), except where stated explicitly. The performance characteristics of the stain(s) cited in this report were developed and its performance characteristic determined by the Dermatopathology Laboratory at [facility], directed by Dr. Sergio Escobedo. These tests need not be, and therefore are not, approved by the [place] Food and Drug Administration. The tests are used for clinical purposes. Billing Codes Specimen Charges Stain Charges 48797 1 12:30 PM CDT DERMATOPATHOLOGY LABORATORY Embedded Images 12:30 PM CDT DERMATOPATHOLOGY LABORATORY Pathology/Cytolog y TISSUE SPECIMEN FROM SKIN / Unknown 07/26/2018 07/27/2018 11:30 AM CDT Sherwin Tejada MD LAB - PATHOLOGY/CYTOLOGY ORD ERABLES Final Result DERMATOPATHOLOGY LABORATORY [facility] - Department of Dermatology [facility] [facility], [address]th [place] [address], [facility] [phone] documented in this encounter Visit Diagnoses Not on filedocumented in this encounter
--- OUTSIDE RECORDS SUMMARY | 2025-01-17 02:13 | XMS_ITS | Clinical Summary ---
Author Organization [facility] Address [address] [place] [address] Care Team Providers Care Carbon Sequestration Plant Engineer Name Role Phone Gregoria Mims MD Primary Care Provider [phone] [phone] Nitin Abdi MD Unavailable Wayne Bryan MD Unavailable Allergies Active Allergy Reactions Criticality Noted Date Comments Adalimumab Hives 10/23/2023 Lisinopril Cough 08/03/2016 Sulfa Antibiotics Other (see comment) 6 Doesn't know Medications fluticasone propionate 50 MCG/ACT nasal spray 2 sprays by Each Nare route daily. 09/09/2016 Active DAILY MULTIPLE VITAMINS Tab Take 1 tablet by mouth daily. 09/09/2016 Active Norman-3 Fatty Acids (OMEGA-3 FISH OIL) 1200 MG Cap Take 2 tablets by mouth daily. 04/18/2017 Active omeprazole 20 MG capsule Take 20 mg by mouth daily as needed. 08/21/2018 Active RINVOQ 30 MG TABLET SR 24 HR Take 1 tablet by mouth daily. 09/07/2023 Active amLODIPine (NORVASC) 5 MG tablet Take 1 tablet (5 mg total) by mouth daily. New dose 11/29/2023 OV 90 tablet 3 02/06/2024 Active chlorthalidone (HYGROTEN) 25 MG tablet Take 1 tablet (25 mg total) by mouth daily. 90 tablet 3 02/06/2024 Active irbesartan (AVAPRO) 300 MG tablet Take 1 tablet (300 mg total) by mouth daily. 90 tablet 3 02/06/2024 Active metoprolol succinate ER (TOPROL-XL) 50 MG 24 hr tablet Take 1 tablet (50 mg total) by mouth daily. New dose 02/06/2024 OV 90 tablet 3 02/06/2024 Active Active Problems Problem Noted Date Diagnosed Date Coronary artery calcification 02/01/2023 Essential hypertension 02/28/2011 Ulcerative colitis 02/28/1998 Dyslipidemia Supraventricular tachycardia Status post placement of implantable loop record er Family History Medical History Relation Comments CABG Mother x3, in 60's Valve Disease Mother Rheumatic fever Relation Status Comments Mother Alive Social History Tobacco Use Types Packs/Day Years Used Date Smoking Tobacco: Never Smokeless Tobacco: Never Tobacco Cessation:Counseling Given: Not Answered Alcohol Use Standard Drinks/Week Comments Yes 5 [...] file Not on file Not on file Last Filed Vital Signs Vital Sign Reading Time Taken Comments Blood Pressure 122/78 02/06/2024 9:27 AM MARKETING DEVELOPMENT MANAGER Pulse 80 02/06/2024 9:27 AM MARKETING DEVELOPMENT MANAGER Temperature 36.6 C (97.8 F) 10/23/2023 2:02 AM CDT Respiratory Rate 16 10/23/2023 6:00 AM CDT Oxygen Saturation 98% 02/06/2024 9:27 AM MARKETING DEVELOPMENT MANAGER Inhaled Oxygen Concentration - - Weight 83.5 kg (184 lb) 02/06/2024 9:27 AM MARKETING DEVELOPMENT MANAGER Height 172.7 cm (5' 8) 02/06/2024 9:27 AM MARKETING DEVELOPMENT MANAGER Body Mass Index 27.98 02/06/2024 9:27 AM MARKETING DEVELOPMENT MANAGER Plan of Treatment Upcoming Encounters Date Type Department Care Team (Late st Contact Info) Description 02/11/2025 8:30 AM MARKETING DEVELOPMENT MANAGER Office Visit [facility] THREE [facility], [address] [place], [place] [phone] Jeanie Reyes, ANP-BC [facility]. [address] [place], [place] [phone] Health Maintenance Due Date Last Done Comments ASCVD Statin 1961 Colorectal Cancer Screening Colonoscopy (10 Years) 1961 Annual Physical 1964 Hepatitis C 1979 DTaP, Tdap and Td Vaccines (1 - Tdap) 1980 Pneumococcal Vaccine: 50+ Years (1 of 2 - PCV) 1980 RSV Immunization or 60+ Years (1 - Risk 60-74 years 1-dose series) 2021 ASCVD LDL 08/07/2024 08/08/2023, 1010/2022, 11/19/2020, Additional history exists COVID-19 Vaccine ( - 2024- season) 2024 Influenza Adult (#1) 2024 12/06/2018, 12/07/19 17 Zoster Vaccines Completed 11/20/2018, 08/28/2018 Hepatitis A Vaccines Aged Out No long er eligible based on patient's age to complete this topic Meningococcal B Vaccine Aged Out No l onger eligible based on patient's age to complete this topic Meningococcal Vaccine Aged Out No xiomara vic eligible based on patient's age to complete this topic RSV Immunizations Under 20 Months Aged Out No longer eligible based on patient's age to complete this topic Procedures Procedure Name Priority Date/Time Associated Diagnosis Comments LIPID PANEL Routine 08/08/2023 from Last 3 Months or Most Recently Relevant to Health Maintenance Results * LIPID PANEL (08/08/2023) CHOLESTEROL 211 TRIGLYCERIDES 210 HDL 65 LDL (CALCULATED) 113 NON HDL CHOLESTEROL 146 us Default History Genericprovider LABORATORY Final Result from Last 3 Months or Most Recently Relevant to Health Maintenance [place] [address] [place] [address] BLUE [facility] Care Teams Carbon Sequestration Plant Engineer Relationship Specialty Start Date End Date Gregoria Mims MD PCP - General FAMILY PRACTICE 07/30/15 Nitin Abdi MD Three [facility]. [address] [place] [address] [place] Neurological Physiotherapist CARDIOVASCULAR DISEASE 07/30/15 Wayne [facility] [address] [place], [place] [address] EP Neurological Physiotherapist CARDIOVASCULAR DISEASE 08/11/16
--- OUTSIDE RECORDS SUMMARY | 2025-01-17 02:13 | XMS_ITS | Encounter Summary ---
Author Organization [facility] Address [facility] [place] [address] Care Team Providers Care Climbing Guide Name Role Phone Gregoria Mims MD Primary Care Provider [phone] [phone] Nitin Abdi MD Unavailable Wayne Bryan MD Unavailable Encounter Details Date Type Department Care Team (Late st Contact Info) Description 02/17/2024 [employer] Message Enc [place] [facility] THREE [facility], [address] [place], [place] [phone] Nitin Abdi MD Three [facility]. [address] [place] [address] Latest Blood Work 02-14-24 Social History Tobacco Use Types Packs/Day Years [...] on file documented as of this encounter Progress Notes * Irene Johnson RN - 02/20/2024 9:28 AM CST . AL BASIC .NET DEVELOPER documented in this encounter Plan of Treatment Upcoming Encounters Date Type Department Care Team (Late st Contact Info) Description 02/11/2025 8:30 AM VISUAL BASIC .NET DEVELOPER Office [facility] [address] [place] [address] Jeanie Reyes, ANP- [address] [place], [place] [phone] documented as of this encounter Visit Diagnoses Not on filedocumented in this encounter Care Teams Climbing Guide Relationship Specialty Start Date End Date Gregoria Mims MD PCP - General FAMILY PRACTICE 07/30/15 Nitin Abdi MD [facility] [address] [place], [place] [address] [place] Pantry Worker CARDIOVASCULAR DISEASE 07/30/15 Wayne Bryan MD [facility] [address] [place], [place] [phone] EP Pantry Worker CARDIOVASCULAR DISEASE 08/11/16 documented as of this encounter
--- OUTSIDE RECORDS SUMMARY | 2025-01-17 02:13 | XMS_ITS | Encounter Summary ---
Author Organization [facility] Address [facility] [place] [address] Care Team Providers Care Manufacturing Scheduler Name Role Phone Gregoria Mims MD Primary Care Provider +1 [phone] Nitin Abdi MD Unavailable Wayne Bryan MD Unavailable Encounter Details Date Type Department Care Team (Late Contact Info) Description 02/17/2024 S[employer] Message Enc [facility] [facility], [address] [place] [address] Jeanie Reyes, ANP-BC [facility]. [address] [place] [address] Latest Bloodwork 02-14-2024 Social History Tobacco Use Types Packs/Day Years [...] st Contact Info) Description 02/11/2025 8:30 AM SUPERVISOR PROCESS TESTING Office Visit [facility] THREE [facility], [address] [place] [address] Jeanie Reyes, ANP- [address] [place] [address] documented as of this encounter Visit Diagnoses Not on filedocumented in this encounter Care Teams Manufacturing Scheduler Relationship Specialty Start Date End Date Gregoria Mims MD PCP - General FAMILY PRACTICE 07/30/15 Nitin Abdi MD [address] [place], [place] [phone] [place]on Poultice Machine Operator CARDIOVASCULAR DISEASE 07/30/15 Wayne Bryan MD [address] [place], [place] [phone] EP Poultice Machine Operator CARDIOVASCULAR DISEASE 08/11/16 documented as of this encounter
--- OUTSIDE RECORDS SUMMARY | 2025-01-17 02:13 | XMS_ITS | Encounter Summary ---
Author Organization [facility] Address [address] [place] [address] Care Team Providers Care Coke Drawer Name Role Phone Gregoria Mims MD Primary Care Provider +1 [phone] Nitin Abdi MD Unavailable Wayne Bryan MD Unavailable Encounter Details Date Type Department Care Team (Late st Contact Info) Description 11/22/2019 Abstract [facility] [address] [place] [address] Kori Mendosa MA Social History Tobacco Use Types Packs/Day Years [...] st Contact Info) Description 02/11/2025 8:30 AM MEMORIAL COUNSELOR Office [facility], [facility] [address] [place], [place] [phone] Jeanie Reyes, ANP-BC [facility]. [facility] [address] [place], [place] [phone] documented as of this encounter Procedures Procedure Name Priority Date/Time Associated Diagnosis Comments COMPREHENSIVE METABOLIC PANEL Routine 08/08/2023 LIPID PANEL Routine 08/08/2023 CBC, MANUAL DIFF Routine 08/08/2023 C-REACTIVE PROTEIN Routine 08/08/2023 HEMOGLOBIN, GLYCOSYLATED Routine 12/06/2022 COMPREHENSIVE METABOLIC PANEL Routine 12/06/2022 LIPID PANEL Routine 12/06/2022 CBC, MANUAL DIFF Routine 12/06/2022 C-REACTIVE PROTEIN Routine 12/06/2022 CBC (OUTSIDE LAB) Routine 06/28/2021 COMPREHENSIVE METABOLIC PANEL Routine 06/28/2021 COMPREHENSIVE METABOLIC PANEL Routine 11/19/2020 LIPID PANEL Routine 11/19/2020 CBC (OUTSIDE LAB) Routine 11/21/2019 COMPREHENSIVE METABOLIC PANEL Routine 11/21/2019 LIPID PANEL Routine 11/21/2019 CK (CPK) Routine 11/21/2019 documented in this encounter Results * C-REACTIVE PROTEIN (08/08/2023) Pathologist [facility] CRP <3.0 08/08/2023 us Default History Genericprovider LABORATORY Final Result * COMPREHENSIVE METABOLIC PANEL (08/08/2023) Pathologist [facility] GLUCOSE 118 mg/dL AST 14 CALCIUM S/P/B 9.5 ALT 19 GFR ESTIMATE 74 Default History Genericprovider LABORATORY Final Result * LIPID PANEL (08/08/2023) Pathologist [facility] CHOLESTEROL 211 TRIGLYCERIDES 210 HDL 65 LDL (CALCULATED) 113 NON HDL CHOLESTEROL 146 Default History Genericprovider LABORATORY Final Result * CBC, MANUAL DIFF (08/08/2023) Pathologist [facility] WBC 14.6 HGB 15.3 HCT 44.9 PLT 268 Default History Genericprovider LABORATORY Final Result * C-REACTIVE PROTEIN (12/06/2022) Pathologist [facility] CRP 1.2 12/06/2022 [facility] History Genericprovider LABORATORY Final Result * COMPREHENSIVE METABOLIC PANEL (12/06/2022) Pathologist [facility] SODIUM S/P/B 138 GLUCOSE 125 mg/dL AST 13 BUN 22 CREATININE S/P/B 0.99 0.7 - 1.3 CALCIUM S/P/B 9.0 POTASSIUM S/P/B 4.2 CHLORIDE S/P/B 101 ALT 20 GFR ESTIMATE 87 Result [facility] Default History Genericprovider LABORATORY Final Result * LIPID PANEL (12/06/2022) Pathologist [facility] CHOLESTEROL 149 TRIGLYCERIDES 191 HDL 41 LDL (CALCULATED) 79 NON HDL CHOLESTEROL 108 Result [facility] Default History Genericprovider LABORATORY Final Result * CBC, MANUAL DIFF (12/06/2022) Pathologist [facility] WBC 16.0 HGB 14.1 HCT 41.3 PLT 382 Default History Genericprovider LABORATORY Final Result * HEMOGLOBIN, GLYCOSYLATED (12/06/2022) Pathologist [facility] HGB A1C 5.9 % Default History Genericprovider LABORATORY Final Result * COMPREHENSIVE METABOLIC PANEL (06/28/2021) Pathologist [facility] SODIUM S/P/B 137 POTASSIUM S/P/B 3.5 CO2 30 CHLORIDE S/P/B 102 GLUCOSE 138 mg/dL CALCIUM S/P/B 8.3 BUN 12 CREATININE S/P/B 1.0 0.7 - 1.3 EGFR NON-AFR. AMER. >60 <=90 ALKALINE PHOSPHATASE S/P/B 88 ALT 18 AST 28 BILIRUBIN TOTAL S/P/B 0.3 ALBUMIN S/P/B 3.6 3.5 - 5.0 TOTAL PROTEIN S/P/B 7.0 06/28/2021 us Default History Genericprovider LABORATORY Final Result * CBC (OUTSIDE LAB) (06/28/2021) [facility] WBC 26.3 HGB 14.4 HCT 43.5 PLT 321 06/28/2021 Default History Genericprovider LAB-OUTSIDE/ABST RACTED Edited Result - Final * COMPREHENSIVE METABOLIC PANEL (11/19/2020) Pathologist [facility] SODIUM S/P/B 137 POTASSIUM S/P/B 4.4 CO2 29 CHLORIDE S/P/B 103 GLUCOSE 106 mg/dL CALCIUM S/P/B 9.0 BUN 14 CREATININE S/P/B 1.14 0.7 - 1.3 EGFR AFR. AMER. 81 <=90 EGFR NON-AFR. AMER. 70 <=90 ALKALINE PHOSPHATASE S/P/B 65 ALT 27 AST 22 BILIRUBIN TOTAL S/P/B 0.7 ALBUMIN S/P/B 4.0 3.5 - 5.0 TOTAL PROTEIN S/P/B 7.1 GLOBULIN 3.1 11/19/2020 us Doc [facility] Abstract LABORATORY Final Result * LIPID PANEL (11/19/2020) Pathologist [facility] CHOLESTEROL 147 HDL 39 TRIGLYCERIDES 206 NON HDL CHOLESTEROL 108 LDL (CALCULATED) 78 11/19/2020 us Doc [facility] Abstract LABORATORY Final Result * CBC (OUTSIDE LAB) (11/21/2019) Pathologist [facility] WBC 12.3 HGB 14.8 HCT 44.4 PLT 266 11/21/2019 us Doc [facility] Abstract LAB-OUTSIDE/ABSTRACTED Final Result * CK (CPK) (11/21/2019) Pathologist [facility] CPK 68 44 - 196 11/21/2019 us Doc [facility] Abstract LABORATORY Final Result * COMPREHENSIVE METABOLIC PANEL (11/21/2019) Pathologist [facility] SODIUM S/P/B 139 POTASSIUM S/P/B 4.6 CO2 27 CHLORIDE S/P/B 101 GLUCOSE 110 mg/dL CALCIUM S/P/B 9.3 BUN 16 CREATININE S/P/B 1.17 0.7 - 1.3 EGFR AFR. AMER. 79 <=90 EGFR NON-AFR. AMER. 68 <=90 ALKALINE PHOSPHATASE S/P/B 67 ALT 26 AST 24 BILIRUBIN TOTAL S/P/B 0.7 ALBUMIN S/P/B 4.2 3.5 - 5.0 TOTAL PROTEIN S/P/B 7.1 GLOBULIN 2.9 11/21/2019 us Doc [facility] Abstract LABORATORY Final Result * LIPID PANEL (11/21/2019) Pathologist [facility] CHOLESTEROL 162 HDL 34 TRIGLYCERIDES 304 NON HDL CHOLESTEROL 128 LDL (CALCULATED) 91 11/21/2019 us Doc [facility] Abstract LABORATORY Final Result documented in this encounter Visit Diagnoses Not on filedocumented in this encounter Care Teams Coke Drawer Relationship Specialty Start Date End Date Gregoria Mims MD PCP - General FAMILY PRACTICE 07/30/15 Nitin Abdi MD [address] [facility] [address] [place], [place] [address] [facility] Retort Cooler CARDIOVASCULAR DISEASE 07/30/15 Wayne Bryan MD [address] [place], [place] [phone] EP Retort Cooler CARDIOVASCULAR DISEASE 08/11/16 documented as of this encounter
--- OUTSIDE RECORDS SUMMARY | 2025-01-17 02:14 | XMS_ITS | Encounter Summary ---
Author Organization [facility] Address [facility] [place] [address] Care Team Providers Care Officer Lieutenant Name Role Phone Gregoria Mims MD Primary Care Provider [phone] [phone] Nitin Abdi MD Unavailable Wayne Bryan MD Unavailable Encounter Details Date Type Department Care Team (Late Contact Info) Description 08/04/2016 Abstract [facility] [address] [address] Kori Mendosa MA Social History Tobacco Use Types Packs/Day Years Used Date Smoking Tobacco: Never Alcohol Use Standard Drinks/Week Comments [...] st Contact Info) Description 02/11/2025 8:30 AM NURSING ADMINISTRATOR Office Visit [facility] THREE [facility], [address] [place], [place] [phone] Jeanie Reyes, ANP-BC Three [facility]. [address] [place], [place] [phone] documented as of this encounter Procedures Procedure Name Priority Date/Time Associated Diagnosis Comments COMPREHENSIVE METABOLIC PANEL Routine 11/07/2023 CBC, MANUAL DIFF Routine 11/07/2023 C-REACTIVE PROTEIN Routine 11/07/2023 BASIC METABOLIC PANEL Routine 07/12/2016 COMPREHENSIVE METABOLIC PANEL Routine 05/07/2016 HEMOGLOBIN, GLYCOSYLATED Routine 05/07/2016 documented in this encounter Results * C-REACTIVE PROTEIN (11/07/2023) CRP <3.0 11/07/2023 us Default History Genericprovider LABORATORY Final Result * COMPREHENSIVE METABOLIC PANEL (11/07/2023) SODIUM S/P/B 140 GLUCOSE 111 mg/dL AST 18 BUN 18 CREATININE S/P/B 1.10 0.7 - 1.3 CALCIUM S/P/B 9.2 POTASSIUM S/P/B 4.4 CHLORIDE S/P/B 104 ALT 19 GFR ESTIMATE 76 us Default History Genericprovider LABORATORY Final Result * CBC, MANUAL DIFF (11/07/2023) WBC 9.1 HGB 12.9 HCT 38.6 PLT 284 Default History Genericprovider LABORATORY Final Result * BASIC METABOLIC PANEL (07/12/2016) SODIUM S/P/B 141 POTASSIUM S/P/B 3.9 CO2 25 CHLORIDE S/P/B 108 GLUCOSE 98 CALCIUM S/P/B 9.4 BUN 24 CREATININE S/P/B 0.98 0.7 - 1.3 EGFR AFR. AMER. 100 EGFR NON-AFR. AMER. 86 07/12/2016 us Doc [facility] Abstract LABORATORY Final Result * HEMOGLOBIN, GLYCOSYLATED (05/07/2016) HGB A1C 5.7 05/07/2016 us Doc [facility] Abstract LABORATORY Final Result * COMPREHENSIVE METABOLIC PANEL (05/07/2016) SODIUM S/P/B 141 POTASSIUM S/P/B 4.8 CO2 24 CHLORIDE S/P/B 106 GLUCOSE 82 CALCIUM S/P/B 9.2 BUN 17 CREATININE S/P/B 1.04 0.7 - 1.3 EGFR AFR. AMER. 93 EGFR NON-AFR. AMER. 80 ALKALINE PHOSPHATASE S/P/B 58 ALT 30 AST 21 BILIRUBIN TOTAL S/P/B 0.5 ALBUMIN S/P/B 4.1 3.5 - 5.0 TOTAL PROTEIN S/P/B 7.1 GLOBULIN 3.0 05/07/2016 us Doc [facility] Abstract LABORATORY Final Result documented in this encounter Visit Diagnoses Not on filedocumented in this encounter Care Teams Officer Lieutenant Relationship Specialty Start Date End Date Gregoria Mims MD PCP - General FAMILY PRACTICE 07/30/15 Nitin Abdi MD [address] [place], [place] [address] [place] Booking Agent CARDIOVASCULAR DISEASE 07/30/15 Wayne Bryan MD [address] [place], [place] [phone] EP Booking Agent CARDIOVASCULAR DISEASE 08/11/16 documented as of this encounter
--- OUTSIDE RECORDS SUMMARY | 2025-01-17 02:14 | XMS_ITS | Encounter Summary ---
Author Organization [facility] Address [facility] [place] [address] Care Team Providers Care Fructose Loader Name Role Phone Gregoria Mims MD Primary Care Provider [phone] -[phone] Nitin Abdi MD Unavailable Wayne Bryan MD Unavailable Encounter Details Date Type Department Care Team (Late Contact Info) Description 01/19/2023 [employer] Message Enc [facility], [address] [place], [place] [phone] Jeanie Reyes, ANP-BC [facility]. [address] [place] [address] Recent Blood tests Social History Tobacco Use Types Packs/Day Years [...] (Late Contact Info) Description 02/11/2025 8:30 AM ADVERTISING COORDINATOR Office Visit [facility], [address] [place], [place] [phone] Jeanie Reyes, ANP- [address] [place] [address] documented as of this encounter Visit Diagnoses Not on filedocumented in this encounter Care Teams Fructose Loader Relationship Specialty Start Date End Date Gregoria Mims MD PCP - General FAMILY PRACTICE 07/30/15 Nitin Abdi MD [address] [place], [place] [phone] [place] Mold Stripper CARDIOVASCULAR DISEASE 07/30/15 Wayne Bryan MD [address] [place], [place] [phone] EP Mold Stripper CARDIOVASCULAR DISEASE 08/11/16 documented as of this encounter
--- OUTSIDE RECORDS SUMMARY | 2025-01-17 02:14 | XMS_ITS | Encounter Summary ---
Author Organization [facility] Address [facility] [place] [address] Care Team Providers Care Personnel Counselor Name Role Phone Gregoria Mims MD Primary Care Provider +1 -[phone] Nitin Abdi MD Unavailable Wayne Bryan MD Unavailable Encounter Details Date Type Department Care Team (Late Contact Info) Description 11/07/2023 [employer] Message Enc [facility] [address] [place], [place] [phone] Jeanie Reyes, MARLI-BC [facility]. [facility] [address] [place] [address] Test Results Social History Tobacco Use Types Packs/Day Years [...] (Late Contact Info) Description 02/11/2025 8:30 AM MINE ADMINISTRATOR SUPERVISOR Office Visit [facility] [address] [place], [place] [phone] Jeanie Reyes, ANP- [address] [place] [address] documented as of this encounter Visit Diagnoses Not on filedocumented in this encounter Care Teams Personnel Counselor Relationship Specialty Start Date End Date Gregoria Mims MD PCP - General FAMILY PRACTICE 07/30/15 Nitin Abdi MD [address] [place], [place] [phone] [place] Primary Montessori Teacher CARDIOVASCULAR DISEASE 07/30/15 Wayne Bryan MD [address] [place], [place] [phone] EP Primary Montessori Teacher CARDIOVASCULAR DISEASE 08/11/16 documented as of this encounter
--- OUTSIDE RECORDS SUMMARY | 2025-01-17 02:14 | XMS_ITS | Encounter Summary ---
Author Organization [facility] Address [facility] [place] [address] Care Team Providers Care Photo Mask Processor Name Role Phone Gregoria Mims MD Primary Care Provider [phone] [phone] Nitin Abdi MD Unavailable Wayne Bryan MD Unavailable Encounter Details Date Type Department Care Team (Late Contact Info) Description 01/20/2022 [employer] Message Enc [place] [facility] THREE [facility], [address] [place], [place] [phone] Jeanie Reyes, ANP-BC Three [facility]. [address] [place] [address] November 2021 Blood work Social History Tobacco Use Types Packs/Day Years [...] file Not on file Not on file COVID-19 Exposure Response Date Recorded In the last 10 days, have yo u been in contact with someone who was confirmed or suspected to have Coronavirus/COVID-19? No / Unsure 01/13/2022 7:41 AM BANQUET CAPTAIN documented as of this encounter Plan of Treatment Upcoming Encounters Date Type Department Care Team (Late st Contact Info) Description 02/11/2025 8:30 AM BANQUET CAPTAIN Office Visit [facility] [address] [place] [address] Jeanie Reyes, ANP- [address] [place] [address] documented as of this encounter Visit Diagnoses Not on filedocumented in this encounter Care Teams Photo Mask Processor Relationship Specialty Start Date End Date Gregoria Mims MD PCP - General FAMILY PRACTICE 07/30/15 Nitin Abdi MD [address] [place], [place] [address] [place] Sales Representative [facility] CARDIOVASCULAR DISEASE 07/30/15 Wayne Bryan MD Three [facility] [address] [place], [place] [phone] EP Sales Representative [facility] CARDIOVASCULAR DISEASE 08/11/16 documented as of this encounter
--- OUTSIDE RECORDS SUMMARY | 2025-01-17 02:14 | XMS_ITS | Clinical Summary ---
Author Organization [facility] Address [address] [place] [address] Care Team Providers Care Elect Equip Maint Eng Name Role Phone Unavailable Primary Care Provider Unavailabl e Source Comments [facility],non-owned Affiliates and Associated Physician Practices is amultiple site organization consisting of ambulatory clinics and hospital sitesin [place], [place], [place] and [place]. This disclosure is being madepursuant to the Care Everywhere program and may not contain all information available regarding this patient. Last updated 17.[facility] Thing5 Social History Tobacco Use Types Packs/Day Years Used Date Smoking Tobacco: Never Assessed Sex and Gender Information Value Date Recorded Sex Assigned at Not on file Legal Sex Male 11:22 AM CDT Gender Identity Not on file Sexual Orientation Not on file Plan of Treatment Health Maintenance Due Date Last Done Comments COLOGUARD (AGES 45-75) - COL ON CA SCREENING 1961 COLON MONITORING 1961 COLONOSCOPY - COLON CA SCREENING 1961 CT COLONOGRAPHY - COLON CA SCREENING 1961 Colorectal Cancer Screening 1961 FIT - COLON CA SCREENING 1961 FLEX SIG - COLON CA SCREENING 1961 LIPID TESTING 1961 HIV SCREENING 1976 HEPATITIS C SCREENING 03/19/1979 DTAP/TDAP/TD VACCINES (1 - Tdap) 1980 PNEUMOCOCCAL VACCINE 50+ (1 of 1 - PCV) 2011 ZOSTER VACCINE (1 of 2) 2011 DEPRESSION SCREENING 02/29/2024 COVID-19 VACCINE ( - 2024-2 6 season) 2024 INFLUENZA VACCINE (#1) 2024 Respiratory Syncytial Virus (RSV) Vaccine Pt: or over 60 yrs (1 - 1-dose 75+ series) 2036 HEPATITIS B VACCINE Aged Out No longe r eligible based on patient's age to complete this topic HIB VACCINE Aged Out No longer eligi ble based on patient's age to complete this topic HPV VACCINE Aged Out No longer eligi ble based on patient's age to complete this topic MENINGOCOCCAL (Group B) VACC INE SHARED DECISION-MAKING Aged Out No longer eligibl e based on patient's age to complete this topic MENINGOCOCCAL GROUPS A/C/Y/W VACCINE Aged Out No longer eligible b ased on patient's age to complete this topic Insurance
[2025-01-17 06:16] VITALS: BP 118/70; PULSE 63; RESP 18; TEMP 35.7; O2SAT 96
--- NOTE | 2025-01-17 06:30 | WPDANESEPPF ---
Anes - Initial Pre Proc Eval Procedure: Operation Date: 01/17/25 07:30 Proposed Procedures p Diagnostic Colonoscopy - Monty Bedolla MD Date/Time: 01/17/25 06:30 Surgeon: Monty Bedolla MD Pre Op Diagnosis: Ulcerative colitis, unspecified, without complicat Patient Data Age: 64 Gender: M Height: 1.7 m Weight: 78.5 kg Last Vital Signs Temp 35.7 C L 01/17/25 06:16 Pulse 63 01/17/25 06:16 Resp 18 01/17/25 06:16 BP 118/70 01/17/25 06:16 Pulse Ox 96 01/17/25 06:16 O2 Del Method Room Air 01/17/25 06:16 Allergies Allergy/AdvReac Type Severity Reaction Status Date / Time adalimumab (From Humira) Allergy Mild Hives Verified 01/17/25 06:14 Sulfa (Sulfonamide Allergy Unknown Skin Verified 01/17/25 06:14 Antibiotics) Reaction lisinopril AdvReac Unknown cough Verified 01/17/25 06:14 midazolam AdvReac Unknown Agitated Verified 01/17/25 06:14 Home Medications ?Medication ?Instructions ?Recorded ?Confirmed ?Type irbesartan 300 mg tablet 300 mg PO DAILY 09/18/19 01/17/25 History multivitamin,tx-minerals 1 tablet PO DAILY 03/26/20 01/17/25 History omega-3 fatty acids 1,000 mg 1,000 mg PO DAILY 03/26/20 01/01/25 History capsule (Fish Oil Concentrate) amlodipine 5 mg tablet 5 mg PO DAILY 10/25/23 01/17/25 History chlorthalidone 25 mg tablet 25 mg PO DAILY 01/03/24 01/17/25 History Jardiance 10 mg tablet 10 mg PO QAM #90 tabs 02/15/24 01/17/25 Rx (empagliflozin) atorvastatin 20 mg tablet 20 mg PO DAILY #90 tabs 02/15/24 01/17/25 Rx omega-3 acid ethyl esters 1 gram 1 cap PO BID #180 caps 06/19/24 01/01/25 Rx capsule metoprolol succinate 50 mg 50 mg PO DAILY #90 tabs 09/25/24 01/17/25 Rx tablet,extended release 24 hr doxycycline hyclate 20 mg tablet 20 mg PO Q24H 10/23/24 01/17/25 History upadacitinib 30 mg tablet,extended 30 mg PO DAILY #30 tabs 11/01/24 01/17/25 Rx release 24 hr (Rinvoq) cyclobenzaprine 10 mg tablet 10 mg PO TID PRN muscle spasm #30 01/13/25 01/17/25 Rx tabs Patient hx anesthesia problems: none Family hx anesthesia problems: none Results Review: All pre-operative results and documents have been reviewed as part of the pre-operative evaluation. 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) Peyronie's disease Right sacral radiculopathy Seborrheic dermatitis Spinal stenosis, cervical region Supraventricular tachycardia Syncope and collapse Surgical History Surgical History Hx of prior ablation treatment 2017 svt/ atrial tach Family History Family History Mother Hypertension Family history of cardiovascular disease, Onset Age: 73 Family history of rheumatic fever, Onset Age: 73 Father Patient's father is Grandparent Family history of cardiovascular disease Acute myocardial infarction Sibling Family history of cardiovascular disease Social History Social History Social History: Caffeine-coffee Smoking status: Never smoker Second hand tobacco smoke exposure: No Alcohol intake: current Drinks per week: 7 Alcohol use details: alcohol on weekend Substance use: never Substance use type: marijuana Other substance usage details: Gummies occasionally Lack of Transportation: No Lack of Food: Never True Current Housing: I Have Housing Concerned About Future Housing: No Difficulty Paying Gas/Electric Bills: No Difficulty Paying for Meds: No Currently Unemployed: No Education: Master's Degree or Higher Difficulty w/ Childcare or Family Care: No Living arrangements: with family Gender identity (if verbalized by the patient): Male Spiritual care concerns: No Anes - Eval Final PreProcedure Day of Procedure 01/17/25 06:30 Patient weight: overweight Heart: regular rate and rhythm Lungs: clear to auscultation Airway: Mallampati scale class II Neurological: alert and oriented Last oral intake: >/= 8 hours ASA classification: III Emergent: no Anesthetic plan: proceed Anesthesia type and monitoring: general GIVS and standard monitoring Results Review: All pre-operative results and documents have been reviewed as part of the pre-operative evaluation. Informed Consent: The patient's anesthetic plan and its attendant risks and benefits were discussed with the patient/family/POA. Questions were solicited and answers provided to the satisfaction of the patient/family/POA.
[2025-01-17] MEDS: LACTATED RINGERS 1,000 ML 150 ML IV CONT (06:35)
--- NOTE | 2025-01-17 07:30 | PM.HPGS ---
History of Present Illness History of Present Illness Consent: Risks, benefits, and alternatives have been discussed and questions answered. Patient agrees to proceed with procedure. Chief complaint: Ulcerative colitis, unspecified, without complicat Narrative: Timothy Hays is a 64 year old male with UC for over 20 years, last colonoscopy 2022 still showed colitis but also had c diff, he has been on envytio, stelara and currently on rinvoq Review of Systems Review of Systems: All systems reviewed & are unremarkable except as noted in HPI and below PMFSH Past Medical History Medical History Rectal bleeding Trigger finger Micturition syncope Migraine Back pain Right arm weakness Right arm numbness Esophageal dysphagia Induration penis plastica Male erectile disorder Migraine 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 equivalents) Peyronie's disease Right sacral radiculopathy Seborrheic dermatitis Spinal stenosis, cervical region Supraventricular tachycardia Syncope and collapse Surgical History Surgical History Hx of prior ablation treatment 2017 svt/ atrial tach Family History Family History Mother Hypertension Family history of cardiovascular disease, Onset Age: 73 Family history of rheumatic fever, Onset Age: 73 Father Patient's father is Grandparent Family history of cardiovascular disease Acute myocardial infarction Sibling Family history of cardiovascular disease Social History Social History Social History: Caffeine-coffee Smoking status: Never smoker Second hand tobacco smoke exposure: No Alcohol intake: current Drinks per week: 7 Alcohol use details: alcohol on weekend Substance use: never Substance use type: marijuana Other substance usage details: Gummies occasionally Lack of Transportation: No Lack of Food: Never True Current Housing: I Have Housing Concerned About Future Housing: No Difficulty Paying Gas/Electric Bills: No Difficulty Paying for Meds: No Currently Unemployed: No Education: Master's Degree or Higher Difficulty w/ Childcare or Family Care: No Living arrangements: with family Gender identity (if verbalized by the patient): Male Spiritual care concerns: No Meds Home Medications and Allergies Home Medications ?Medication ?Instructions ?Recorded ?Confirmed ?Type irbesartan 300 mg tablet 300 mg PO DAILY 09/18/19 01/17/25 History multivitamin,tx-minerals 1 tablet PO DAILY 03/26/20 01/17/25 History omega-3 fatty acids 1,000 mg 1,000 mg PO DAILY 03/26/20 01/17/25 History capsule (Fish Oil Concentrate) amlodipine 5 mg tablet 5 mg PO DAILY 10/25/23 01/17/25 History chlorthalidone 25 mg tablet 25 mg PO DAILY 01/03/24 01/17/25 History Jardiance 10 mg tablet 10 mg PO QAM #90 tabs 02/15/24 01/17/25 Rx (empagliflozin) atorvastatin 20 mg tablet 20 mg PO DAILY #90 tabs 02/15/24 01/17/25 Rx omega-3 acid ethyl esters 1 gram 1 cap PO BID #180 caps 06/19/24 01/17/25 Rx capsule metoprolol succinate 50 mg 50 mg PO DAILY #90 tabs 09/25/24 01/17/25 Rx tablet,extended release 24 hr doxycycline hyclate 20 mg tablet 20 mg PO Q24H 10/23/24 01/17/25 History upadacitinib 30 mg tablet,extended 30 mg PO DAILY #30 tabs 11/01/24 01/17/25 Rx release 24 hr (Rinvoq) cyclobenzaprine 10 mg tablet 10 mg PO TID PRN muscle spasm #30 01/13/25 01/17/25 Rx tabs Allergies Allergy/AdvReac Type Severity Reaction Status Date / Time adalimumab (From Humira) Allergy Mild Hives Verified 01/17/25 06:14 Sulfa (Sulfonamide Allergy Unknown Skin Verified 01/17/25 06:14 Antibiotics) Reaction lisinopril AdvReac Unknown cough Verified 01/17/25 06:14 midazolam AdvReac Unknown Agitated Verified 01/17/25 06:14 Vital Signs Vital Signs - 24 hr 01/17/25 06:16 Temperature 96.3 F L Pulse Rate 63 Respiratory Rate 18 Blood Pressure 118/70 Pulse Oximetry 96 Oxygen Delivery Room Air Exam Const: General: comfortable and no acute distress HENMT: Face/Nose/Sinus: Normal nares present Eyes: General: appearance normal, both eyes and all related structures Resp: Auscultation: clear to auscultation bilaterally Cardio: Rate: regular rate Rhythm: regular rhythm GI: Inspection: non-distended GI Palp: Yes Soft to palpation Skin: General skin exam: normal color Extrem: General: normal to inspection Psych: Mental Status: mental status grossly normal Assessment and Plan Assessment and plan (1) Ulcerative colitis: Code(s): K51.90 - Ulcerative colitis, unspecified, without complications Status: Acute Assessment and Plan: colonoscopy
--- NOTE | 2025-01-17 07:37 | S_PTH ---
PATIENT: Timothy Hays LOC: [facility]#:[id number] AGE/SX: 64/M ROOM: RE01/17/[address]: Monty Bedolla MD : 1960 BED: DIS: 01/17/2025 SPEC #: [id number] RECD: 01/17/25 09:20 STATUS: MARLEEN REGabriella #: [id number] ARIANNA: 01/17/25 07:[address]: Monty Bedolla DEPT: [facility] Surgical RECD BY: Nancy Steele ENTERED: 01/17/25 09:21 SP TYPE: Surgical OTHR DR: Gregoria Mims MD Tissues: A - Colon Biopsy B - Colon Biopsy Procedures: Hematoxylin and Eosin Stain Gross and Microscopic Level 4
[2025-01-17 07:44] VITALS: BP 98/62; PULSE 57; RESP 18; O2SAT 98
[2025-01-17 07:54] VITALS: BP 105/65; PULSE 62; RESP 20; O2SAT 98
[2025-01-17 08:04] VITALS: BP 118/83; PULSE 58; RESP 15; O2SAT 99
== END 2025-01-17 08:11 | disposition home or self-care (01) ==
PROVIDERS: PCP Family Medicine; Referring Provider Nurse Practitioner Family; Visit Provider Internal Medicine Gastroenterology
PROC: 0DJD8ZZ Inspection of Lower Intestinal Tract, Via Natural or Artificial Opening Endoscopic (ICD-10-PCS; CPT 45378; principal; 2025-01-17 07:30)
DX: K51.90 Ulcerative colitis, unspecified, without complications (principal); Z79.620 Long term (current) use of immunosuppressive biologic; F12.90 Cannabis use, unspecified, uncomplicated
CPT/HCPCS: 45380; 82948; 88305; J2003; J2704; J7120

== ENCOUNTER 2025-02-18 10:16 | Outpatient (CLI) | payer BC, SELFPAY ==
[2025-02-18 11:24] LABS: Toxigenic C. Diff NEGATIVE (NEGATIVE)
--- OUTSIDE RECORDS SUMMARY | 2025-02-18 11:49 | XMS_ITS | Clinical Summary ---
Author Organization [facility] Address [address] [place] [address] Care Team Providers Care Collet Maker Name Role Phone Unavailable Primary Care Provider Unavailabl e Source Comments [facility],non-owned Affiliates and Associated Physician Practices is amultiple site organization consisting of ambulatory clinics and hospital sitesin [place], [place], [place] and [place]. This disclosure is being madepursuant to the Care Everywhere program and may not contain all information available regarding this patient. Last updated 17.[facility] CDEL Social History Tobacco Use Types Packs/Day Years [...] patient's age to complete this topic Insurance [facility] Address: [address] [place] [address] [facility] [place] [place] SELF PAY NO INSURANCE Member Subscriber Plan / Payer (Ef fective for All Dates) Name:Michelle Rousseau Member ID:Not on file Relation to Subscriber:Not on file Name:MICHELLE ROUSSEAU Subscriber ID:Not on file (Home) Address: [address] [place] [id number] Payer ID:Not on file Group ID:Not on file Type:Self Pay Address: [place], [place]
--- OUTSIDE RECORDS SUMMARY | 2025-02-18 11:49 | XMS_ITS | Clinical Summary ---
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
--- OUTSIDE RECORDS SUMMARY | 2025-02-18 11:49 | XMS_ITS | Encounter Summary ---
Author Organization [facility] Address [address] [place] [address] Care Team Providers Care Art Psychotherapist Or Therapist Name Role Phone Unavailable Primary Care Provider Unavailabl e Encounter Details Date Type Department Care Team (Late st Contact Info) Description 07/27/2018 Lab Requisition [facility] [address] [place] [address] Sherwin Tejada MD [address] [place] [address] Social History Tobacco Use Types [...] AM CDT) Case Report Dermatopathology Report Case: [id number] Authorizing Provider: Sherwin Tejada MD Collected: 07/26/2018 [...] specimen consists of a shave biopsy measuring [id number]. Jar 0. 12:30 PM T DERMATOPATHOLOGY LABORATORY [...] characteristic determined by the Dermatopathology Laboratory at [facility], directed by Dr. Sergio Escobedo. These tests need not be, and therefore are not, approved by the [place] Food and Drug Administration. The tests are used for clinical purposes. Billing Codes Specimen Charges Stain Charges 58489 1 12:30 PM CDT DERMATOPATHOLOGY LABORATORY Embedded Images 12:30 PM CDT DERMATOPATHOLOGY LABORATORY Pathology/Cytolog y TISSUE SPECIMEN FROM SKIN / Unknown 07/26/2018 07/27/2018 11:30 AM CDT Sherwin Tejada MD LAB - PATHOLOGY/CYTOLOGY ORD ERABLES Final Result DERMATOPATHOLOGY LABORATORY [facility] - Department of Dermatology [facility] [facility], [address] [place] [address], [facility] [phone] documented in this encounter Visit Diagnoses Not on filedocumented in this encounter
== END 2025-02-18 10:17 | disposition home or self-care (01) ==
LOC: ANHLAB 10:17
PROVIDERS: PCP Family Medicine; Visit Provider Student in an Organized Health Care Education/Training Program
DX: R19.7 Diarrhea, unspecified (principal)
CPT/HCPCS: 87045; 87046; 87427; 87493